=== PATIENT | female | born 1995 | race Two or more races ===

== ENCOUNTER 2022-11-01 11:09 | Emergency (ER) | payer OTHER ==
[~2022-11-01] VITALS: Ht 157.5 cm; Wt 56.7 kg
[2022-11-02] MEDS ORDERED: PEPCID AC20 MG PO (18:26)
[2022-11-02] MEDS ORDERED: CARAFATE1 GM PO (18:26)
[2022-11-02] MEDS ORDERED: ONDANSETRON ODT8 MG PO (18:27)
== END 2022-11-01 16:40 | disposition home or self-care (01) ==
LOC: ER 11:09
DX: R11.10 Vomiting, unspecified (principal)

== ENCOUNTER 2022-11-02 10:52 | Emergency (ER) | payer OTHER ==
[~2022-11-02] VITALS: Ht 157.5 cm; Wt 56.7 kg
[2022-11-02] MEDS ORDERED: PEPCID AC20 MG PO (18:26)
[2022-11-02] MEDS ORDERED: CARAFATE1 GM PO (18:26)
[2022-11-02] MEDS ORDERED: ONDANSETRON ODT8 MG PO (18:27)
== END 2022-11-02 18:39 | disposition home or self-care (01) ==
LOC: ER 10:52
DX: K29.70 Gastritis, unspecified, without bleeding (principal); R10.2 Pelvic and perineal pain

== ENCOUNTER 2024-12-28 07:46 | Emergency (ER) | payer OTHER ==
[~2024-12-28] VITALS: Ht 157.5 cm; Wt 49.9 kg
[~2024-12-28 07:46] MED LIST: CARAFATE1 GM PO; ONDANSETRON ODT8 MG PO; PEPCID AC20 MG PO
[2024-12-28] MEDS ORDERED: KETOROLAC TROMETHAMINE 60 MG VIAL IM ONE (08:30)
[2024-12-28] MEDS ORDERED: 0.9 % SODIUM CHLORIDE 1,000 ML IV SCH (10:15)
[2024-12-28] MEDS ORDERED: PROMETHAZINE HCL 25 MG/ML AMPUL IM ONE (11:30)
== END 2024-12-28 14:45 | disposition home or self-care (01) ==
LOC: ER 07:47
DX: N94.6 Dysmenorrhea, unspecified (principal)